=== PATIENT | female | born 1985 | race Caucasian/White ===

== ENCOUNTER 2016-03-29 10:56 | Emergency (ER) | payer OTHER ==
[2016-03-29] MEDS ORDERED: ONDANSETRON 4 MG/2 ML VIAL IVP STA (11:09)
[2016-03-29] MEDS ORDERED: SODIUM CHLORIDE 0.9% 1,500 ML IV STA (11:09)
--- NOTE | 2016-03-29 11:39 | ED ---
General Adult HPI - General Chief complaint: Nausea/Vomiting/Diarrhea Stated complaint: vomiting Time Seen by Provider: 03/29/16 11:06 Source: patient, RN notes reviewed Mode of arrival: ambulatory Limitations: no limitations - History of Present Illness Initial comments: 30-year-old female presented emergency Department for nausea vomiting diarrhea. Patient states symptoms started approximate 48 hours ago. Patient states the diarrhea primary surgeon recently. Patient continues to vomit she's had some bouts where she kept some food down. Patient denies hematemesis, coffee-ground emesis, melena or hematochezia. Patient denies any known fever or chills. Patient denies any chest pain, shortness breath, headache, dizziness or any sick contacts with similar symptoms. Patient denies any chance of . She states she does not show menstrual cycle. Patient had no prior abdominal surgeries. - Related Data Previous Rx's Medication Instructions Recorded Ondansetron Odt [Zofran Odt] 4 mg PO Q8HR PRN #10 tab 03/29/16 Allergies Allergy/AdvReac Type Severity Reaction Status Date / Time No Known Allergies Allergy Verified 03/29/16 11:03 Review of Systems ROS Statement: Those systems with pertinent positive or pertinent negative responses have been documented in the HPI. ROS Other: All systems not noted in ROS Statement are negative. Past Medical History Past Medical History: No Reported History History of Any Multi-Drug Resistant Organisms: None Reported Past Surgical History: Tonsillectomy Additional Past Surgical History / Comment(s): wisdom teeth Past Psychological History: No Psychological Hx Reported Smoking Status: Current every day smoker Past Alcohol Use History: None Reported Past Drug Use History: None Reported General Exam Limitations: no limitations General appearance: alert, in no apparent distress Head exam: Present: atraumatic, normocephalic, normal inspection Respiratory exam: Present: normal lung sounds bilaterally. Absent: respiratory distress, wheezes, rales, rhonchi, stridor Cardiovascular Exam: Present: regular rate, normal rhythm, normal heart sounds. Absent: systolic murmur, diastolic murmur, rubs, gallop, clicks GI/Abdominal exam: Present: soft, tenderness (Minimal diffuse), normal bowel sounds. Absent: distended, guarding, rebound, rigid Back exam: Absent: CVA tenderness (R), CVA tenderness (L) Course Vital Signs 03/29/16 03/29/16 11:01 12:54 Temperature 98.8 F 98.7 F Pulse Rate 99 80 Respiratory 20 14 Rate Blood Pressure 116/61 115/55 O2 Sat by Pulse 99 98 Oximetry Medical Decision Making - Medical Decision Making 30-year-old female presented for nausea vomiting diarrhea. Patient has gastroenteritis. Patient's potassium is slightly low it will be replaced. Patient be discharged Zofran. - Lab Data Result diagrams: 03/29/16 11:55 03/29/16 12:40 Lab Results 03/29/16 03/29/16 03/29/16 Range/Units 11:55 11:55 11:55 WBC 8.8 (3.8-10.6) k/uL RBC 4.51 (3.80-5.40) m/uL Hgb 13.9 (11.4-16.0) gm/dL Hct 42.4 (34.0-46.0) % MCV 94.1 (80.0-100.0) fL MCH 30.9 (25.0-35.0) pg MCHC 32.8 (31.0-37.0) g/dL RDW 12.3 (11.5-15.5) % Plt Count 233 (150-450) k/uL Neutrophils % 70 % Lymphocytes % 19 % Monocytes % 5 % Eosinophils % 3 % Basophils % 1 % Neutrophils # 6.2 (1.3-7.7) k/uL Lymphocytes # 1.7 (1.0-4.8) k/uL Monocytes # 0.5 (0-1.0) k/uL Eosinophils # 0.3 (0-0.7) k/uL Basophils # 0.1 (0-0.2) k/uL Sodium (137-145) mmol/L Potassium (3.5-5.1) mmol/L Chloride (98-107) mmol/L Carbon Dioxide (22-30) mmol/L Anion Gap mmol/L BUN (7-17) mg/dL Creatinine (0.52-1.04) mg/dL Est GFR (MDRD) Af Amer (>60 ml/min/1.73 sqM) Est GFR (MDRD) Non-Af (>60 ml/min/1.73 sqM) Glucose (74-99) mg/dL Calcium (8.4-10.2) mg/dL Total Bilirubin (0.2-1.3) mg/dL AST (14-36) U/L ALT (9-52) U/L Alkaline Phosphatase (38-126) U/L Total Protein (6.3-8.2) g/dL Albumin (3.5-5.0) g/dL Amylase (30-110) U/L Lipase (23-300) U/L Urine Color Yellow Urine Appearance Cloudy H (Clear) Urine pH 6.0 (5.0-8.0) Ur Specific [place] 1.019 (1.001-1.035) Urine Protein Trace H (Negative) Urine Glucose (UA) Negative (Negative) Urine Ketones Negative (Negative) Urine Blood Large H (Negative) Urine Nitrate Negative (Negative) Urine Bilirubin Negative (Negative) Urine Urobilinogen <2.0 (<2.0) mg/dL Ur Leukocyte Esterase Negative (Negative) Urine RBC 3 (0-5) /hpf Urine WBC 2 (0-5) /hpf Ur Squamous Epith Cells 5 H (0-4) /hpf Urine Bacteria Rare H (None) /hpf Urine Mucus Few H (None) /hpf Urine HCG, Qual Not Detected (Not Detectd) 03/29/16 Range/Units 12:40 WBC (3.8-10.6) k/uL RBC (3.80-5.40) m/uL Hgb (11.4-16.0) gm/dL Hct (34.0-46.0) % MCV (80.0-100.0) fL MCH (25.0-35.0) pg MCHC (31.0-37.0) g/dL RDW (11.5-15.5) % Plt Count (150-450) k/uL Neutrophils % % Lymphocytes % % Monocytes % % Eosinophils % % Basophils % % Neutrophils # (1.3-7.7) k/uL Lymphocytes # (1.0-4.8) k/uL Monocytes # (0-1.0) k/uL Eosinophils # (0-0.7) k/uL Basophils # (0-0.2) k/uL Sodium 141 (137-145) mmol/L Potassium 3.3 L (3.5-5.1) mmol/L Chloride 108 H (98-107) mmol/L Carbon Dioxide 22 (22-30) mmol/L Anion Gap 11 mmol/L BUN 8 (7-17) mg/dL Creatinine 0.50 L (0.52-1.04) mg/dL Est GFR (MDRD) Af Amer >60 (>60 ml/min/1.73 sqM) Est GFR (MDRD) Non-Af >60 (>60 ml/min/1.73 sqM) Glucose 85 (74-99) mg/dL Calcium 7.9 L (8.4-10.2) mg/dL Total Bilirubin 0.2 (0.2-1.3) mg/dL AST 17 (14-36) U/L ALT 26 (9-52) U/L Alkaline Phosphatase 59 (38-126) U/L Total Protein 6.8 (6.3-8.2) g/dL Albumin 3.5 (3.5-5.0) g/dL Amylase <30 L (30-110) U/L Lipase 26 (23-300) U/L Urine Color Urine Appearance (Clear) Urine pH (5.0-8.0) Ur Specific [place] (1.001-1.035) Urine Protein (Negative) Urine Glucose (UA) (Negative) Urine Ketones (Negative) Urine Blood (Negative) Urine Nitrate (Negative) Urine Bilirubin (Negative) Urine Urobilinogen (<2.0) mg/dL Ur Leukocyte Esterase (Negative) Urine RBC (0-5) /hpf Urine WBC (0-5) /hpf Ur Squamous Epith Cells (0-4) /hpf Urine Bacteria (None) /hpf Urine Mucus (None) /hpf Urine HCG, Qual (Not Detectd) Disposition Clinical Impression: Gastroenteritis, Hypokalemia Disposition: HOME SELF-CARE Condition: Stable Instructions: Acute Nausea and Vomiting (ED) Additional Instructions: Please return to the Emergency Department if symptoms worsen or any other concerns. Prescriptions: Ondansetron Odt [Zofran Odt] 4 mg PO Q8HR PRN #10 tab PRN Reason: Nausea Time of Disposition: 13:15
[2016-03-29 12:07] LABS: Basophils # (A) 0.1 k/uL (0-0.2); Basophils % (A) 1 %; CHCM 34.1; Eosinophils # (A) 0.3 k/uL (0-0.7); Eosinophils % (A) 3 %; HCT 42.4 % (34.0-46.0); HDW 2.09; HGB 13.9 gm/dL (11.4-16.0); Luc # (Auto) 0.21; Luc % (Auto) 2; Lymphocytes # (A) 1.7 k/uL (1.0-4.8); Lymphocytes % (A) 19 %; MCH 30.9 pg (25.0-35.0); MCHC 32.8 g/dL (31.0-37.0); MCV 94.1 fL (80.0-100.0); Mean Platelet Volume 8.1; Monocytes # (A) 0.5 k/uL (0-1.0); Monocytes % (A) 5 %; Neutrophils # (A) 6.2 k/uL (1.3-7.7); Neutrophils % (A) 70 %; RBC 4.51 m/uL (3.80-5.40); RDW 12.3 % (11.5-15.5); WBC 8.8 k/uL (3.8-10.6); WBC (Perox) 9.23
[2016-03-29 12:09] LABS: Appearance,Urine Cloudy (Clear); Bacteria,Urine Rare /hpf; Bilirubin,Urine Negative (Negative); Glucose,Urine (UA) Negative (Negative); Ketones,Urine Negative (Negative); Leukocyte Esterase,Urine Negative (Negative); Mucus,Urine Few /hpf; Nitrite,Urine Negative (Negative); Particle Count 8052; Protein,Urine Trace (Negative); RBC,Urine 3 /hpf (0-5); Specific Gravity,Urine 1.019 (1.001-1.035); Squamous Epithelial Cell,Urine 5 /hpf (0-4); UA Billing (MACRO vs. MICRO) MICRO; Urobilinogen,Urine <2.0 mg/dL (<2.0); WBC,Urine 2 /hpf (0-5)
[2016-03-29 12:55] VITALS: RESP 14; TEMP 98.7
[2016-03-29 13:01] LABS: ALT 26 U/L (9-52); AST 17 U/L (14-36); Alkaline Phosphatase 59 U/L (38-126); Amylase <30 U/L (30-110); Anion Gap 11 mmol/L; Blood Urea Nitrogen 8 mg/dL (7-17); Calcium 7.9 mg/dL (8.4-10.2); Carbon Dioxide 22 mmol/L (22-30); Chloride 108 mmol/L (98-107); Glucose 85 mg/dL (74-99); Non-African American GFR(MDRD) >60 (>60 ml/min/1.73 sqM); Potassium 3.3 mmol/L (3.5-5.1); Sodium 141 mmol/L (137-145); Total Bilirubin 0.2 mg/dL (0.2-1.3); Total Protein 6.8 g/dL (6.3-8.2)
[2016-03-29] MEDS ORDERED: POTASSIUM CHLORIDE ER 20 MEQ TAB.ER PO STA (13:15)
[2016-03-29 14:09] VITALS: BP 105/57; PULSE 86
== END 2016-03-29 14:09 | disposition home or self-care (01) ==
LOC: EC 10:56
DX: K52.9 Noninfective gastroenteritis and colitis, unspecified (principal); E87.6 Hypokalemia; R11.2 Nausea with vomiting, unspecified; F17.200 Nicotine dependence, unspecified, uncomplicated
CPT/HCPCS: 99284; 96374; 96361; 36415; 80053; 82150; 83690; 85025; 81001; 81025; J2405